=== PATIENT | male | born 1985 | race American Indian/Alaskan Native ===

== ENCOUNTER 2018-09-24 13:50 | Emergency (ER) | payer SELFPAY ==
[2018-09-24 13:58] VITALS: BP 109/75
[2018-09-24] MEDS ORDERED: MOTRIN PO ONE (14:00)
[2018-09-24] MEDS ORDERED: TRIPLE ANTIBIOTIC TP ONE ×2 (14:00→14:23)
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
== END 2018-09-24 14:41 | disposition home or self-care (01) ==
LOC: ED 13:50 → EDBD 13:50 → ED 14:41
DX: S80.812A Abrasion, left lower leg, initial encounter (principal); S80.811A Abrasion, right lower leg, initial encounter; Z79.899 Other long term (current) drug therapy; V87.8XXA Person injured in other specified noncollision transport accidents involving motor vehicle (traffic), initial encounter; Y93.89 Activity, other specified; Y92.488 Other paved roadways as the place of occurrence of the external cause; Y99.8 Other external cause status
CPT/HCPCS: 99283; A6250